=== PATIENT | male | born 1950 | race Caucasian/White ===

== ENCOUNTER 2017-09-03 08:04 | Day surgery (SDC) | payer MEDICARE ==
[~2017-09-03] VITALS: Ht 182.9 cm; Wt 102.3 kg
[2017-09-03 08:13] VITALS: BP 178/106
[2017-09-03] MEDS ORDERED: DIAZ10TA PO (08:19)
[2017-09-03] MEDS ORDERED: FLUO10CA13 PO (08:19)
[2017-09-03] MEDS ORDERED: HYDR-3240 PO (08:19)
[2017-09-03] MEDS ORDERED: ASPI-621 PO (08:19)
[2017-09-03] MEDS ORDERED: VALS1TAB15 PO (08:19)
[2017-09-03] MEDS ORDERED: CARI350T PO (08:19)
[2017-09-03] MEDS ORDERED: ATOR40TA78 PO (08:19)
[2017-09-03] MEDS ORDERED: OMEG1CAP34 PO (08:19)
[2017-09-03] MEDS ORDERED: HYDR50TA13 PO (08:19)
[2017-09-03] MEDS ORDERED: METO25TA2 PO (08:19)
[2017-09-03] MEDS ORDERED: UBID10CA7 PO (08:19)
[2017-09-03] MEDS ORDERED: METF1000 PO (08:19)
[2017-09-03] MEDS ORDERED: FENTANYL PF 100 MCG/2ML ONE (08:34)
[2017-09-03] MEDS ORDERED: HEPARIN 1,000 UNITS/ML, 10ML ONE (08:34)
[2017-09-03] MEDS ORDERED: BIVALIRUDIN 250 MG ONE (08:34)
[2017-09-03] MEDS ORDERED: NITROGLYCERIN 5 MG/ML, 10ML ONE (08:34)
[2017-09-03] MEDS ORDERED: MIDAZOLAM 1 MG/ML, 5ML ONE (08:34)
[2017-09-03] MEDS ORDERED: TICAGRELOR 90 MG TABLET ONE (08:34)
[2017-09-03] MEDS ORDERED: LIDOCAINE 2%, 20ML ONE (08:34)
[2017-09-03] MEDS ORDERED: VERAPAMIL 2.5 MG/ML, 2ML ONE (08:34)
== END 2017-09-03 11:30 ==
LOC: CACL 08:04
PROVIDERS: ATTEND Internal Medicine Cardiovascular Disease
DX: I25.10 Atherosclerotic heart disease of native coronary artery without angina pectoris (principal); J44.9 Chronic obstructive pulmonary disease, unspecified; E78.2 Mixed hyperlipidemia; I10 Essential (primary) hypertension; F17.210 Nicotine dependence, cigarettes, uncomplicated; E11.9 Type 2 diabetes mellitus without complications; Z88.1 Allergy status to other antibiotic agents; Z88.8 Allergy status to other drugs, medicaments and biological substances
CPT/HCPCS: 93458; 99156; C1769; C1894; J1644; J2250; J3010; Q9967; J0583; J3490